=== PATIENT | male | born 1955 ===

== ENCOUNTER 2023-04-13 11:12 | Emergency (ER) | payer OTHER ==
--- OUTSIDE RECORDS SUMMARY | 2023-04-13 11:33 | XMS REPORT | Continuity of Care Document ---
:1955 Author Organization [facility] t Address [address] [place] [address] [address] [place] [address] Care Team Providers Name Role Phone GORDON MONTIEL Primary Care Physician Unavailable Rory Attending Clinician Unavailable Ayd Bailey Attending Clinician [phone] Ady Bailey Attending Clinician Unavailable KANU MARCELINO Attending Clinician Unavailable YADIEL BAIG Attending Clinician Unavailable Ravi Alvarez DO Attending Clinician WILL REEDER Attending Clinician Unavailable Doctor Unassigned, Angwin Attending Clinician Unavailable BOSSMAN ANGELES Attending Clinician Unavailable Dre López Attending Clinician Rory Admitting Clinician Unavailable KNOW, DOES_NOT Admitting Clinician Unavailable GLADYS CALLAHAN Admitting Clinician Unavailable BOSSMAN ANGELES Admitting Clinician Unavailable Payers Payer Name Policy Type Policy Number Effective Date Expiration Date Ping TOMPKINS (POS) [id number] 2010 00:00:00 Problems Condition Condition Condition Status Onset Resolution Last Treating Co mments Source Name Details Category Date Date Treatment Clinician Date Shoulder Shoulder Problem Active Azale a pain Pain -07 Orthope 00:00: dic 00 Sports Medicin e Sprain of Sprain of Problem Active Aza karishma shoulder Shoulder 4-07 Orthop e rotator Rotator 00:00: dic cuff Cuff 00 Sports Medicin e Cervical Cervical Problem Active Azale a radiculopa Radiculopa 3-17 Or thope thy thy 00:00: dic 00 Sports Medicin e Impingemen Impingemen Problem Active A zalea t syndrome t Syndrome 2-23 Or thope of right of Right 00:00: dic shoulder Shoulder 00 Sports region Region Medicin e Degenerati Degenerati Problem Active 2020-11 A zalea ve joint ve Joint 2-03 Orthop e disease of Disease of 00:00: di c shoulder Shoulder 00 Sports region Region Medicin e 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 t syndrome t Syndrome 2-03 Or thope of of 00:00: dic shoulder Shoulder 00 Sports region Region Medicin e Full Full Problem Active 2020-11 Tere thickness Thickness 2-03 Orth ope rotator Rotator 00:00: dic cuff tear Cuff Tear 00 Spor ts Medicin e ANKLE ANKLE Diagnosis Active 2019-02-03 Mem oria WOUND WOUND 4- 18:12:00 l Active 00:00: Evans 02/03/2019 00 [facility] No known No known Disease Unive rs active active ity of problems problems [facility] [place] History of Past Illness Condition Condition Condition Status Onset Resolution Last Treating Co mments Source Name Details Category Date Date Treatment Clinician Date Pain in Pain in Problem 2019-02-06 2019-02-06 Memoria left ankle left ankle 02-03 01:37:01 01:37:01 l 02/03/2019 05:00: Carlos cota 02/06/2019 00 [facility] Allergies, Adverse Reactions, Alerts Allergy Allergy Status Severity Reaction(s) Onset Inactive Treating Comm ents Source Name Type Date Date Clinician No Known DA Active U [facility] 7[facility]14 [place] Allergie 00:00: Orthope s 00 dic Hospita l No Known DA Active U 2020-11 [facility] Allergie 2-09 [place] s 00:00: Orthope 00 dic Hospita l NO KNOWN Drug Active Univers ALLERGIE Class ity of S [facility] Social History Social Habit Start Date Stop Date Quantity Comments Source History [facility] University o f Alcohol Std [place] [facility] Drinks Branch History [facility] University o f Alcohol Binge [place] [facility] Tobacco use and 2019-10-09 2019-10-09 Never used Universit y of exposure 00:00:00 00:00:00 [place] [facility] Alcohol intake 2019-10-09 2019-10-09 Lifetime University of 00:00:00 00:00:00 non-drinker [place] [facility] (finding) Branch History SDOH 2019-10-09 2019-10-09 1 University o f Alcohol Frequency 00:00:00 00:00:00 [facility] edical [place] Sex [birth year] Universit y of 00:00:00 00:00:00 [facility] Smoking Status Start Date Stop Date Source Social History [facility] Medications Ordered Filled Start Stop Current Ordering Indication Dosage Frequency Signature Comments Components Source Medication Medication Date Date Medication? Clinician (SIG) Name Name Diclofenac 2018-11 Yes [id number] Apply to Univers Sodium 2-06 area(s) 4 ity of (VOLTAREN) 00:00: (four) [place] 1 % gel 00 times Medical daily. Branch Diclofenac 2018-11 Yes [id number] Apply to Univers Sodium 2-06 area(s) 4 ity of (VOLTAREN) 00:00: (four) [place] 1 % gel 00 times Medical daily. Branch acetaminoph 2018-11 Yes [id number] 1{tbl} Take 1 Univers en-codeine 1-30 tablet by ity of (TYLENOL-CO 00:00: mouth [place] DEINE #3) 00 every 4 Medical 300-30 mg (four) Branch tablet hours as needed for Pain (scale 1-3). acetaminoph 2018-11 Yes [id number] 1{tbl} Take 1 Univers en-codeine 1-30 tablet by ity of (TYLENOL-CO 00:00: mouth [place] DEINE #3) 00 every 4 Medical 300-30 mg (four) Branch tablet hours as needed for Pain (scale 1-3). Cephalexin Yes 500 mg = 1 M emoria 500 MG Oral 4-02 cap, PO, l Capsule 22:27: QID, X 10 Yolette nn [Keflex] 00 day, # 40 cap, 0 Refill(s) METFORMIN Yes Take by Unive rs HCL 7-14 mouth. ity of (METFORMIN 16:08: [place] ORAL) 39 Medical Branch METFORMIN Yes Take by Unive rs HCL 7-14 mouth. ity of (METFORMIN 16:08: [place] ORAL) 39 Medical Branch methylPREDN Yes 84mg Take 21 Uni vers ISolone 7-14 tablets by ity of (MEDROL, 00:00: mouth [place] AUDELIA,) 4 mg 00 SEE-INSTRU Med ical tablets CTIONS. Branch follow package directions methylPREDN Yes 84mg Take 21 Uni vers ISolone 7-14 tablets by ity of (MEDROL, 00:00: mouth [place] AUDELIA,) 4 mg 00 SEE-INSTRU Med ical tablets CTIONS. Branch follow package directions INVOKANA Yes Univers 300 mg 7-05 ity of tablet 00:00: [place] 00 Medical Branch INVOKANA Yes Univers 300 mg 7-05 ity of tablet 00:00: [place] 00 Medical Branch promethazin promethazin No promethazi Tere e 25 mg e 25 mg ne 25 mg Ortho pe tablet Take tablet Take tablet dic 1 tablet 1 tablet Take 1 Sport s every 6-8 every 6-8 tablet Med icin hours as hours as every 6-8 e needed for needed for hours as nausea and nausea and needed for vomiting vomiting nausea and vomiting QuickVue QuickVue No QuickVue Aza karishma [facility]Home Orthop e COVID-19 COVID-19 COVID-19 dic Test kit Test kit Test kit Spo rts Medicin e rosuvastati rosuvastati No rosuvastat Tere n 5 mg n 5 mg in 5 mg Orthope tablet TAKE tablet TAKE tablet dic 1 TABLET BY 1 TABLET BY TAKE 1 Sports MOUTH EVERY MOUTH EVERY TABLET BY Medicin DAY AT DAY AT MOUTH e NIGHT NIGHT EVERY DAY AT NIGHT tizanidine tizanidine No tizanidine Tere 2 mg tablet 2 mg tablet 2 mg O rthope TAKE 1 TAKE 1 tablet dic TABLET BY TABLET BY TAKE 1 Spo rts MOUTH EVERY MOUTH EVERY TABLET BY Medicin DAY AT DAY AT MOUTH e BEDTIME FOR BEDTIME FOR EVERY DAY 28 DAYS 28 DAYS AT BEDTIME FOR 28 DAYS tizanidine tizanidine No tizanidine Tere 4 mg tablet 4 mg tablet 4 mg O rthope Take 1 Take 1 tablet dic tablet(s) tablet(s) Take 1 Spo rts EVERY 8 EVERY 8 tablet(s) Medi vera HOURS by HOURS by EVERY 8 e oral route oral route HOURS by as needed as needed oral route for muscle for muscle as needed spasms spasms for muscle spasms tramadol tramadol No tramadol Aza karishma 37.5 37.5 37.5 Orthope mg-acetamin mg-acetamin mg-acetami dic ophen 325 ophen 325 nophen 325 Sports mg tablet mg tablet mg tablet Medicin TAKE 1 TAKE 1 TAKE 1 e TABLET BY TABLET BY TABLET BY MOUTH EVERY MOUTH EVERY MOUTH 4 TO 6 4 TO 6 EVERY 4 TO HOURS HOURS 6 HOURS NEEDED FOR NEEDED FOR NEEDED FOR PAIN PAIN PAIN tramadol 50 tramadol 50 No tramadol Tere mg tablet mg tablet 50 mg Orth ope TAKE 1 TAKE 1 tablet dic TABLET BY TABLET BY TAKE 1 Spo rts MOUTH EVERY MOUTH EVERY TABLET BY Medicin 6 TO 8 6 TO 8 MOUTH e HOURS HOURS EVERY 6 TO NEEDED NEEDED 8 HOURS NEEDED Accu-Chek Accu-Chek No Accu-Chek Tere Nettie Plus Netite Plus Nettie Plus Orthope test strips test strips test d ic USE USE strips USE Sport s INSTRUCTED INSTRUCTED Med icin INSTRUCTED e acetaminoph acetaminoph No acetaminop Tere en 300 en 300 hen 300 Orthope mg-codeine mg-codeine mg-codeine dic 30 mg 30 mg 30 mg Sports tablet TAKE tablet TAKE tablet Medicin 1 TABLET BY 1 TABLET BY TAKE 1 e MOUTH EVERY MOUTH EVERY TABLET BY 6 HOURS 6 HOURS MOUTH NEEDED FOR NEEDED FOR EVERY 6 PAIN FOR 7 PAIN FOR 7 HOURS DAYS DAYS NEEDED FOR PAIN FOR 7 DAYS amoxicillin amoxicillin No amoxicilli Tere 500 mg 500 mg n 500 mg Orthope tablet TAKE tablet TAKE tablet dic 1 TABLET BY 1 TABLET BY TAKE 1 Sports MOUTH THREE MOUTH THREE TABLET BY Medicin TIMES A DAY TIMES A DAY MOUTH e THREE TIMES A DAY amoxicillin amoxicillin No amoxicilli Tere 875 mg 875 mg n 875 mg Orthope tablet TAKE tablet TAKE tablet dic 1 TABLET BY 1 TABLET BY TAKE 1 Sports MOUTH EVERY MOUTH EVERY TABLET BY Medicin 12 HOURS 12 HOURS MOUTH e FOR 10 DAYS FOR 10 DAYS EVERY 12 HOURS FOR 10 DAYS gabapentin gabapentin No gabapentin Tere 300 mg 300 mg 300 mg Orthope capsule capsule capsule dic TAKE 1 TAKE 1 TAKE 1 Sports CAPSULE CAPSULE CAPSULE Medici n TWICE A DAY TWICE A DAY TWICE A e BY MOUTH BY MOUTH DAY BY FOR 28 FOR 28 MOUTH FOR DAYS. DAYS. 28 DAYS. hydrocodone hydrocodone No hydrocodon Tere 5 5 e 5 Orthope mg-acetamin mg-acetamin mg-acetami dic ophen 325 ophen 325 nophen 325 Sports mg tablet mg tablet mg tablet Medicin TAKE 1 TAKE 1 TAKE 1 e TABLET BY TABLET BY TABLET BY MOUTH EVERY MOUTH EVERY MOUTH DAY DAY EVERY DAY ID NOW ID NOW No ID NOW Tere COVID-19 COVID-19 COVID-19 Ort hope Test Kit Test Kit Test Kit dic TEST TEST TEST Sports DIRECTED DIRECTED DIRECTED Med icin TODAY TODAY TODAY e [id number] ketorolac ketorolac No ketorolac Tere 10 mg 10 mg 10 mg Orthope tablet Take tablet Take tablet dic 1 tablet 1 tablet Take 1 Sport s every 6 every 6 tablet Medicin hours by hours by every 6 e oral route oral route hours by for 5 days. for 5 days. oral route for 5 days. losartan losartan No losartan Aza karishma 100 100 100 Orthope mg-hydrochl mg-hydrochl mg-hydroch dic orothiazide orothiazide lorothiazi Sports 25 mg 25 mg de 25 mg Medicin tablet TAKE tablet TAKE tablet e 1 TABLET BY 1 TABLET BY TAKE 1 MOUTH EVERY MOUTH EVERY TABLET BY DAY DAY MOUTH EVERY DAY meloxicam meloxicam No meloxicam Tere 15 mg 15 mg 15 mg Orthope tablet TAKE tablet TAKE tablet dic 1 TABLET BY 1 TABLET BY TAKE 1 Sports MOUTH EVERY MOUTH EVERY TABLET BY Medicin DAY DAY MOUTH e EVERY DAY meloxicam meloxicam No meloxicam Tere 7.5 mg 7.5 mg 7.5 mg Orthope tablet TAKE tablet TAKE tablet dic 1 TABLET BY 1 TABLET BY TAKE 1 Sports MOUTH EVERY MOUTH EVERY TABLET BY Medicin DAY DAY MOUTH e EVERY DAY metformin metformin No metformin Tere 1,000 mg 1,000 mg 1,000 mg Ort hope tablet TAKE tablet TAKE tablet dic 1 TABLET BY 1 TABLET BY TAKE 1 Sports MOUTH EVERY MOUTH EVERY TABLET BY Medicin 12 HOURS 12 HOURS MOUTH e EVERY 12 HOURS Ozempic Ozempic No Ozempic Tere 0.25 mg or 0.25 mg or 0.25 mg or Orthope 0.5 mg (2 0.5 mg (2 0.5 mg (2 dic mg/1.5 mL) mg/1.5 mL) mg/1.5 mL) Sports subcutaneou subcutaneou subcutaneo Medicin s pen s pen us pen e injector injector injector INJECT 0.5 INJECT 0.5 INJECT 0.5 MG UNDER MG UNDER MG UNDER THE SKIN THE SKIN THE SKIN EVERY 7 EVERY 7 EVERY 7 DAYS. DAYS. DAYS. Ozempic 1 Ozempic 1 No Ozempic 1 Tere mg/dose (4 mg/dose (4 mg/dose (4 Orthope mg/3 mL) mg/3 mL) mg/3 mL) dic subcutaneou subcutaneou subcutaneo Sports s pen s pen us pen Medicin injector injector injector e INJECT 0.75 INJECT 0.75 INJECT ML (1 MG ML (1 MG 0.75 ML (1 TOTAL) TOTAL) MG TOTAL) UNDER THE UNDER THE UNDER THE SKIN EVERY SKIN EVERY SKIN EVERY 7 DAYS. 7 DAYS. 7 DAYS. prednisone prednisone No prednisone Tere 10 mg 10 mg 10 mg Orthope tablet TAKE tablet TAKE tablet dic 1 TABLET BY 1 TABLET BY TAKE 1 Sports MOUTH THREE MOUTH THREE TABLET BY Medicin TIMES A DAY TIMES A DAY MOUTH e THREE TIMES A DAY promethazin promethazin No promethazi Tere e 25 mg e 25 mg ne 25 mg Ortho pe tablet Take tablet Take tablet dic 1 tablet 1 tablet Take 1 Sport s every 6-8 every 6-8 tablet Med icin hours as hours as every 6-8 e needed for needed for hours as nausea and nausea and needed for vomiting vomiting nausea and vomiting rosuvastati rosuvastati No rosuvastat Tere n 5 mg n 5 mg in 5 mg Orthope tablet TAKE tablet TAKE tablet dic 1 TABLET BY 1 TABLET BY TAKE 1 Sports MOUTH EVERY MOUTH EVERY TABLET BY Medicin DAY AT DAY AT MOUTH e NIGHT NIGHT EVERY DAY AT NIGHT tizanidine tizanidine No tizanidine Tere 2 mg tablet 2 mg tablet 2 mg O rthope TAKE 1 TAKE 1 tablet dic TABLET TABLET TAKE 1 Sports EVERY DAY EVERY DAY TABLET Med icin BY MOUTH AT BY MOUTH AT EVERY DAY e BEDTIME FOR BEDTIME FOR BY MOUTH 28 DAYS. 28 DAYS. AT BEDTIME FOR 28 DAYS. tizanidine tizanidine No tizanidine Tere 4 mg tablet 4 mg tablet 4 mg O rthope Take 1 Take 1 tablet dic tablet(s) tablet(s) Take 1 Spo rts EVERY 8 EVERY 8 tablet(s) Medi vera HOURS by HOURS by EVERY 8 e oral route oral route HOURS by as needed as needed oral route for muscle for muscle as needed spasms spasms for muscle spasms tramadol tramadol No tramadol Aza karishma 37.5 37.5 37.5 Orthope mg-acetamin mg-acetamin mg-acetami dic ophen 325 ophen 325 nophen 325 Sports mg tablet mg tablet mg tablet Medicin TAKE 1 TAKE 1 TAKE 1 e TABLET BY TABLET BY TABLET BY MOUTH EVERY MOUTH EVERY MOUTH 4 TO 6 4 TO 6 EVERY 4 TO HOURS HOURS 6 HOURS NEEDED FOR NEEDED FOR NEEDED FOR PAIN PAIN PAIN tramadol 50 tramadol 50 No tramadol Tere mg tablet mg tablet 50 mg Orth ope TAKE 1 TAKE 1 tablet dic TABLET BY TABLET BY TAKE 1 Spo rts MOUTH EVERY MOUTH EVERY TABLET BY Medicin 4 TO 6 4 TO 6 MOUTH e HOURS HOURS EVERY 4 TO NEEDED FOR NEEDED FOR 6 HOURS PAIN PAIN NEEDED FOR PAIN Accu-Chek Accu-Chek No Accu-Chek Tere Nettie Plus Nettie Plus Nettie Plus Orthope test strips test strips test d ic USE USE strips USE Sport s INSTRUCTED INSTRUCTED Med icin INSTRUCTED e acetaminoph acetaminoph No acetaminop Tere en 300 en 300 hen 300 Orthope mg-codeine mg-codeine mg-codeine dic 30 mg 30 mg 30 mg Sports tablet TAKE tablet TAKE tablet Medicin 1 TABLET BY 1 TABLET BY TAKE 1 e MOUTH EVERY MOUTH EVERY TABLET BY 6 HOURS 6 HOURS MOUTH NEEDED FOR NEEDED FOR EVERY 6 PAIN FOR 7 PAIN FOR 7 HOURS DAYS DAYS NEEDED FOR PAIN FOR 7 DAYS amlodipine amlodipine No amlodipine Tere 5 mg tablet 5 mg tablet 5 mg O rthope TAKE 1 TAKE 1 tablet dic TABLET BY TABLET BY TAKE 1 Spo rts MOUTH 1 MOUTH 1 TABLET BY Medi vera TIME EACH TIME EACH MOUTH 1 e DAY. DAY. TIME EACH DAY. amoxicillin amoxicillin No amoxicilli Tere 500 mg 500 mg n 500 mg Orthope tablet TAKE tablet TAKE tablet dic 1 TABLET BY 1 TABLET BY TAKE 1 Sports MOUTH THREE MOUTH THREE TABLET BY Medicin TIMES A DAY TIMES A DAY MOUTH e THREE TIMES A DAY amoxicillin amoxicillin No amoxicilli Tere 875 mg 875 mg n 875 mg Orthope tablet TAKE tablet TAKE tablet dic 1 TABLET BY 1 TABLET BY TAKE 1 Sports MOUTH EVERY MOUTH EVERY TABLET BY Medicin 12 HOURS 12 HOURS MOUTH e FOR 10 DAYS FOR 10 DAYS EVERY 12 HOURS FOR 10 DAYS benzonatate benzonatate No benzonatat Tere 100 mg 100 mg e 100 mg Orthope capsule capsule capsule dic Sports Medicin e fluticasone fluticasone No fluticason Tere propionate propionate e Ort hope 50 50 propionate dic mcg/actuati mcg/actuati 50 S ports on nasal on nasal mcg/actuat M edicin spray,suspe spray,suspe ion nasal e nsion nsion spray,susp ension gabapentin gabapentin No gabapentin Tere 300 mg 300 mg 300 mg Orthope capsule capsule capsule dic TAKE 1 TAKE 1 TAKE 1 Sports CAPSULE CAPSULE CAPSULE Medici n TWICE A DAY TWICE A DAY TWICE A e BY MOUTH BY MOUTH DAY BY FOR 28 FOR 28 MOUTH FOR DAYS. DAYS. 28 DAYS. hydrocodone hydrocodone No hydrocodon Tere 5 5 e 5 Orthope mg-acetamin mg-acetamin mg-acetami dic ophen 325 ophen 325 nophen 325 Sports mg tablet mg tablet mg tablet Medicin TAKE 1 TAKE 1 TAKE 1 e TABLET BY TABLET BY TABLET BY MOUTH EVERY MOUTH EVERY MOUTH DAY DAY EVERY DAY ID NOW ID NOW No ID NOW Tere COVID-19 COVID-19 COVID-19 Ort mount cory Test Kit Test Kit Test Kit dic TEST TEST TEST Sports DIRECTED DIRECTED DIRECTED Med icin TODAY TODAY TODAY e [id number] ketorolac ketorolac No ketorolac Tere 10 mg 10 mg 10 mg Orthope tablet Take tablet Take tablet dic 1 tablet 1 tablet Take 1 Sport s every 6 every 6 tablet Medicin hours by hours by every 6 e oral route oral route hours by for 5 days. for 5 days. oral route for 5 days. losartan losartan No losartan Aza karishma 100 100 100 Orthope mg-hydrochl mg-hydrochl mg-hydroch dic orothiazide orothiazide lorothiazi Sports 25 mg 25 mg de 25 mg Medicin tablet TAKE tablet TAKE tablet e 1 TABLET BY 1 TABLET BY TAKE 1 MOUTH 1 MOUTH 1 TABLET BY TIME EACH TIME EACH MOUTH 1 DAY. DAY. TIME EACH DAY. meloxicam meloxicam No meloxicam Tere 15 mg 15 mg 15 mg Orthope tablet TAKE tablet TAKE tablet dic 1 TABLET BY 1 TABLET BY TAKE 1 Sports MOUTH EVERY MOUTH EVERY TABLET BY Medicin DAY DAY MOUTH e EVERY DAY meloxicam meloxicam No meloxicam Tere 7.5 mg 7.5 mg 7.5 mg Orthope tablet TAKE tablet TAKE tablet dic 1 TABLET BY 1 TABLET BY TAKE 1 Sports MOUTH EVERY MOUTH EVERY TABLET BY Medicin DAY DAY MOUTH e EVERY DAY metformin metformin No metformin Tere 1,000 mg 1,000 mg 1,000 mg Ort hope tablet TAKE tablet TAKE tablet dic 1 TABLET BY 1 TABLET BY TAKE 1 Sports MOUTH EVERY MOUTH EVERY TABLET BY Medicin 12 HOURS 12 HOURS MOUTH e EVERY 12 HOURS Ozempic Ozempic No Ozempic Tere 0.25 mg or 0.25 mg or 0.25 mg or Orthope 0.5 mg (2 0.5 mg (2 0.5 mg (2 dic mg/1.5 mL) mg/1.5 mL) mg/1.5 mL) Sports subcutaneou subcutaneou subcutaneo Medicin s pen s pen us pen e injector injector injector INJECT 0.5 INJECT 0.5 INJECT 0.5 MG UNDER MG UNDER MG UNDER THE SKIN THE SKIN THE SKIN EVERY 7 EVERY 7 EVERY 7 DAYS. DAYS. DAYS. Ozempic 1 Ozempic 1 No Ozempic 1 Tere mg/dose (4 mg/dose (4 mg/dose (4 Orthope mg/3 mL) mg/3 mL) mg/3 mL) dic subcutaneou subcutaneou subcutaneo Sports s pen s pen us pen Medicin injector injector injector e INJECT 0.75 INJECT 0.75 INJECT MG UNDER MG UNDER 0.75 MG THE SKIN THE SKIN UNDER THE PER WEEK. PER WEEK. SKIN PER WEEK. prednisone prednisone No prednisone Tere 10 mg 10 mg 10 mg Orthope tablet TAKE tablet TAKE tablet dic 1 TABLET BY 1 TABLET BY TAKE 1 Sports MOUTH THREE MOUTH THREE TABLET BY Medicin TIMES A DAY TIMES A DAY MOUTH e THREE TIMES A DAY promethazin promethazin No promethazi Tere e 25 mg e 25 mg ne 25 mg Ortho pe tablet Take tablet Take tablet dic 1 tablet 1 tablet Take 1 Sport s every 6-8 every 6-8 tablet Med icin hours as hours as every 6-8 e needed for needed for hours as nausea and nausea and needed for vomiting vomiting nausea and vomiting QuickVue QuickVue No QuickVue Aza karishma [facility]-Home [facility]-Home At-Home Orthop e COVID-19 COVID-19 COVID-19 dic Test kit Test kit Test kit Spo rts Medicin e rosuvastati rosuvastati No rosuvastat Tere n 5 mg n 5 mg in 5 mg Orthope tablet TAKE tablet TAKE tablet dic 1 TABLET BY 1 TABLET BY TAKE 1 Sports MOUTH EVERY MOUTH EVERY TABLET BY Medicin DAY AT DAY AT MOUTH e NIGHT NIGHT EVERY DAY AT NIGHT tizanidine tizanidine No tizanidine Tere 2 mg tablet 2 mg tablet 2 mg O rthope TAKE 1 TAKE 1 tablet dic TABLET TABLET TAKE 1 Sports EVERY DAY EVERY DAY TABLET Med icin BY MOUTH AT BY MOUTH AT EVERY DAY e BEDTIME FOR BEDTIME FOR BY MOUTH 28 DAYS. 28 DAYS. AT BEDTIME FOR 28 DAYS. tizanidine tizanidine No tizanidine Tere 4 mg tablet 4 mg tablet 4 mg O rthope Take 1 Take 1 tablet dic tablet(s) tablet(s) Take 1 Spo rts EVERY 8 EVERY 8 tablet(s) Medi vera HOURS by HOURS by EVERY 8 e oral route oral route HOURS by as needed as needed oral route for muscle for muscle as needed spasms spasms for muscle spasms tramadol tramadol No tramadol Aza karishma 37.5 37.5 37.5 Orthope mg-acetamin mg-acetamin mg-acetami dic ophen 325 ophen 325 nophen 325 Sports mg tablet mg tablet mg tablet Medicin TAKE 1 TAKE 1 TAKE 1 e TABLET BY TABLET BY TABLET BY MOUTH EVERY MOUTH EVERY MOUTH 4 TO 6 4 TO 6 EVERY 4 TO HOURS HOURS 6 HOURS NEEDED FOR NEEDED FOR NEEDED FOR PAIN PAIN PAIN tramadol 50 tramadol 50 No tramadol Tere mg tablet mg tablet 50 mg Orth ope TAKE 1 TAKE 1 tablet dic TABLET BY TABLET BY TAKE 1 Spo rts MOUTH EVERY MOUTH EVERY TABLET BY Medicin 4 TO 6 4 TO 6 MOUTH e HOURS HOURS EVERY 4 TO NEEDED FOR NEEDED FOR 6 HOURS PAIN PAIN NEEDED FOR PAIN Accu-Chek Accu-Chek No Accu-Chek Tere Nettie Plus Nettie Plus Nettie Plus Orthope test strips test strips test d ic USE USE strips USE Sport s INSTRUCTED INSTRUCTED Med icin INSTRUCTED e acetaminoph acetaminoph No acetaminop Tere en 300 en 300 hen 300 Orthope mg-codeine mg-codeine mg-codeine dic 30 mg 30 mg 30 mg Sports tablet TAKE tablet TAKE tablet Medicin 1 TABLET BY 1 TABLET BY TAKE 1 e MOUTH EVERY MOUTH EVERY TABLET BY 6 HOURS 6 HOURS MOUTH NEEDED FOR NEEDED FOR EVERY 6 PAIN FOR 7 PAIN FOR 7 HOURS DAYS DAYS NEEDED FOR PAIN FOR 7 DAYS amlodipine amlodipine No amlodipine Tere 5 mg tablet 5 mg tablet 5 mg O rthope TAKE 1 TAKE 1 tablet dic TABLET BY TABLET BY TAKE 1 Spo rts MOUTH 1 MOUTH 1 TABLET BY Medi vera TIME EACH TIME EACH MOUTH 1 e DAY. DAY. TIME EACH DAY. amoxicillin amoxicillin No amoxicilli Tere 500 mg 500 mg n 500 mg [facility]ope tablet TAKE tablet TAKE tablet dic 1 TABLET BY 1 TABLET BY TAKE 1 Sports MOUTH THREE MOUTH THREE TABLET BY Medicin TIMES A DAY TIMES A DAY MOUTH e THREE TIMES A DAY amoxicillin amoxicillin No amoxicilli Tere 875 mg 875 mg n 875 mg [facility] tablet TAKE tablet TAKE tablet dic 1 TABLET BY 1 TABLET BY TAKE 1 Sports MOUTH EVERY MOUTH EVERY TABLET BY Medicin 12 HOURS 12 HOURS MOUTH e FOR 10 DAYS FOR 10 DAYS EVERY 12 HOURS FOR 10 DAYS benzonatate benzonatate No benzonatat Tere 100 mg 100 mg e 100 mg Orthope capsule capsule capsule dic Sports Medicin e Celebrex Celebrex No 1capsul Q1D Celebrex Tere 200 mg 200 mg e(s) 200 mg Orthope capsule capsule capsule dic Take 1 Take 1 Take 1 Sports capsule capsule capsule Medici n every day every day every day e by oral by oral by oral route. route. route. fluticasone fluticasone No fluticason Tere propionate propionate e Ort hope 50 50 propionate dic mcg/actuati mcg/actuati 50 S ports on nasal on nasal mcg/actuat M edicin spray,suspe spray,suspe ion nasal e nsion nsion spray,susp ension gabapentin gabapentin No gabapentin Tere 300 mg 300 mg 300 mg [facility] capsule capsule capsule dic TAKE 1 TAKE 1 TAKE 1 Sports CAPSULE BY CAPSULE BY CAPSULE BY Medicin MOUTH TWICE MOUTH TWICE MOUTH e A DAY FOR A DAY FOR TWICE A 28 DAYS 28 DAYS DAY FOR 28 DAYS hydrocodone hydrocodone No hydrocodon Tere 10 10 e 10 Orthope mg-acetamin mg-acetamin mg-acetami dic ophen 325 ophen 325 nophen 325 Sports mg tablet mg tablet mg tablet Medicin PLEASE SEE PLEASE SEE PLEASE SEE e ATTACHED ATTACHED ATTACHED FOR FOR FOR DETAILED DETAILED DETAILED DIRECTIONS DIRECTIONS DIRECTIONS hydrocodone hydrocodone No hydrocodon Tere 5 5 e 5 Orthope mg-acetamin mg-acetamin mg-acetami dic ophen 325 ophen 325 nophen 325 Sports mg tablet mg tablet mg tablet Medicin TAKE 1 TAKE 1 TAKE 1 e TABLET BY TABLET BY TABLET BY MOUTH EVERY MOUTH EVERY MOUTH DAY DAY EVERY DAY ID NOW ID NOW No ID NOW Tere COVID-19 COVID-19 COVID-19 Ort hope Test Kit Test Kit Test Kit dic TEST TEST TEST Sports DIRECTED DIRECTED DIRECTED Med icin TODAY TODAY TODAY e [id number] ketorolac ketorolac No ketorolac Tere 10 mg 10 mg 10 mg [facility] tablet Take tablet Take tablet dic 1 tablet 1 tablet Take 1 Sport s every 6 every 6 tablet Medicin hours by hours by every 6 e oral route oral route hours by for 5 days. for 5 days. oral route for 5 days. losartan losartan No losartan Aza karishma 100 100 100 [facility] mg-hydrochl mg-hydrochl mg-hydroch dic orothiazide orothiazide lorothiazi Sports 25 mg 25 mg de 25 mg Medicin tablet TAKE tablet TAKE tablet e 1 TABLET BY 1 TABLET BY TAKE 1 MOUTH 1 MOUTH 1 TABLET BY TIME EACH TIME EACH MOUTH 1 DAY. DAY. TIME EACH DAY. meloxicam meloxicam No meloxicam Tere 15 mg 15 mg 15 mg [facility] tablet TAKE tablet TAKE tablet dic 1 TABLET BY 1 TABLET BY TAKE 1 Sports MOUTH EVERY MOUTH EVERY TABLET BY Medicin DAY DAY MOUTH e EVERY DAY meloxicam meloxicam No meloxicam Tere 7.5 mg 7.5 mg 7.5 mg [facility] tablet TAKE tablet TAKE tablet dic 1 TABLET BY 1 TABLET BY TAKE 1 Sports MOUTH EVERY MOUTH EVERY TABLET BY Medicin DAY DAY MOUTH e EVERY DAY metformin metformin No metformin Tere 1,000 mg 1,000 mg 1,000 mg Ort hope tablet TAKE tablet TAKE tablet dic 1 TABLET BY 1 TABLET BY TAKE 1 Sports MOUTH EVERY MOUTH EVERY TABLET BY Medicin 12 HOURS 12 HOURS MOUTH e EVERY 12 HOURS Ozempic Ozempic No Ozempic Tere 0.25 mg or 0.25 mg or 0.25 mg or Orthope 0.5 mg (2 0.5 mg (2 0.5 mg (2 dic mg/1.5 mL) mg/1.5 mL) mg/1.5 mL) Sports subcutaneou subcutaneou subcutaneo Medicin s pen s pen us pen e injector injector injector INJECT 0.5 INJECT 0.5 INJECT 0.5 MG UNDER MG UNDER MG UNDER THE SKIN THE SKIN THE SKIN EVERY 7 EVERY 7 EVERY 7 DAYS. DAYS. DAYS. Ozempic 1 Ozempic 1 No Ozempic 1 Tere mg/dose (4 mg/dose (4 mg/dose (4 Orthope mg/3 mL) mg/3 mL) mg/3 mL) dic subcutaneou subcutaneou subcutaneo Sports s pen s pen us pen Medicin injector injector injector e INJECT 0.75 INJECT 0.75 INJECT MG UNDER MG UNDER 0.75 MG THE SKIN THE SKIN UNDER THE PER WEEK. PER WEEK. SKIN PER WEEK. prednisone prednisone No prednisone Tere 10 mg 10 mg 10 mg Orthope tablet TAKE tablet TAKE tablet dic 1 TABLET BY 1 TABLET BY TAKE 1 Sports MOUTH THREE MOUTH THREE TABLET BY Medicin TIMES A DAY TIMES A DAY MOUTH e THREE TIMES A DAY promethazin promethazin No promethazi Tere e 25 mg e 25 mg ne 25 mg Ortho pe tablet Take tablet Take tablet dic 1 tablet 1 tablet Take 1 Sport s every 6-8 every 6-8 tablet Med icin hours as hours as every 6-8 e needed for needed for hours as nausea and nausea and needed for vomiting vomiting nausea and vomiting QuickVue QuickVue No QuickVue Aza karishma At-Home At-Home At-Home Orthop e COVID-19 COVID-19 COVID-19 dic Test kit Test kit Test kit Spo rts Medicin e rosuvastati rosuvastati No rosuvastat Tere n 5 mg n 5 mg in 5 mg Orthope tablet TAKE tablet TAKE tablet dic 1 TABLET BY 1 TABLET BY TAKE 1 Sports MOUTH EVERY MOUTH EVERY TABLET BY Medicin DAY AT DAY AT MOUTH e NIGHT NIGHT EVERY DAY AT NIGHT tizanidine tizanidine No tizanidine Tere 2 mg tablet 2 mg tablet 2 mg O rthope TAKE 1 TAKE 1 tablet dic TABLET BY TABLET BY TAKE 1 Spo rts MOUTH EVERY MOUTH EVERY TABLET BY Medicin DAY AT DAY AT MOUTH e BEDTIME FOR BEDTIME FOR EVERY DAY 28 DAYS 28 DAYS AT BEDTIME FOR 28 DAYS tizanidine tizanidine No tizanidine Tere 4 mg tablet 4 mg tablet 4 mg O rthope Take 1 Take 1 tablet dic tablet(s) tablet(s) Take 1 Spo rts EVERY 8 EVERY 8 tablet(s) Medi vera HOURS by HOURS by EVERY 8 e oral route oral route HOURS by as needed as needed oral route for muscle for muscle as needed spasms spasms for muscle spasms tramadol tramadol No tramadol Aza karishma 37.5 37.5 37.5 Orthope mg-acetamin mg-acetamin mg-acetami dic ophen 325 ophen 325 nophen 325 Sports mg tablet mg tablet mg tablet Medicin TAKE 1 TAKE 1 TAKE 1 e TABLET BY TABLET BY TABLET BY MOUTH EVERY MOUTH EVERY MOUTH 4 TO 6 4 TO 6 EVERY 4 TO HOURS HOURS 6 HOURS NEEDED FOR NEEDED FOR NEEDED FOR PAIN PAIN PAIN tramadol 50 tramadol 50 No 1 Q7H tramadol Tere mg tablet mg tablet 50 mg Orth ope Take 1 Take 1 tablet dic tablet tablet Take 1 Sports every 6-8 every 6-8 tablet Med icin hours by hours by every 6-8 e oral route oral route hours by as needed. as needed. oral route as needed. Accu-Chek Accu-Chek No Accu-Chek Tere Nettie Plus Nettie Plus Nettie Plus Orthope test strips test strips test d ic USE USE strips USE Sport s INSTRUCTED INSTRUCTED Med icin INSTRUCTED e acetaminoph acetaminoph No acetaminop Tere en 300 en 300 hen 300 Orthope mg-codeine mg-codeine mg-codeine dic 30 mg 30 mg 30 mg Sports tablet TAKE tablet TAKE tablet Medicin 1 TABLET BY 1 TABLET BY TAKE 1 e MOUTH EVERY MOUTH EVERY TABLET BY 6 HOURS 6 HOURS MOUTH NEEDED FOR NEEDED FOR EVERY 6 PAIN FOR 7 PAIN FOR 7 HOURS DAYS DAYS NEEDED FOR PAIN FOR 7 DAYS amlodipine amlodipine No amlodipine Tere 5 mg tablet 5 mg tablet 5 mg O rthope TAKE 1 TAKE 1 tablet dic TABLET BY TABLET BY TAKE 1 Spo rts MOUTH 1 MOUTH 1 TABLET BY Medi vera TIME EACH TIME EACH MOUTH 1 e DAY. DAY. TIME EACH DAY. amoxicillin amoxicillin No amoxicilli Tere 500 mg 500 mg n 500 mg Orthope tablet TAKE tablet TAKE tablet dic 1 TABLET BY 1 TABLET BY TAKE 1 Sports MOUTH THREE MOUTH THREE TABLET BY Medicin TIMES A DAY TIMES A DAY MOUTH e THREE TIMES A DAY amoxicillin amoxicillin No amoxicilli Tere 875 mg 875 mg n 875 mg Orthope tablet TAKE tablet TAKE tablet dic 1 TABLET BY 1 TABLET BY TAKE 1 Sports MOUTH EVERY MOUTH EVERY TABLET BY Medicin 12 HOURS 12 HOURS MOUTH e FOR 10 DAYS FOR 10 DAYS EVERY 12 HOURS FOR 10 DAYS benzonatate benzonatate No benzonatat Tere 100 mg 100 mg e 100 mg Orthope capsule capsule capsule dic Sports Medicin e celecoxib celecoxib No celecoxib Tere 200 mg 200 mg 200 mg Orthope capsule capsule capsule dic TAKE 1 TAKE 1 TAKE 1 Sports CAPSULE BY CAPSULE BY CAPSULE BY Medicin MOUTH EVERY MOUTH EVERY MOUTH e DAY DAY EVERY DAY fluticasone fluticasone No fluticason Tere propionate propionate e Ort hope 50 50 propionate dic mcg/actuati mcg/actuati 50 S ports on nasal on nasal mcg/actuat M edicin spray,suspe spray,suspe ion nasal e nsion nsion spray,susp ension gabapentin gabapentin No gabapentin Tere 300 mg 300 mg 300 mg Orthope capsule capsule capsule dic TAKE 1 TAKE 1 TAKE 1 Sports CAPSULE BY CAPSULE BY CAPSULE BY Medicin MOUTH TWICE MOUTH TWICE MOUTH e A DAY FOR A DAY FOR TWICE A 28 DAYS 28 DAYS DAY FOR 28 DAYS hydrocodone hydrocodone No hydrocodon Tere 10 10 e 10 Orthope mg-acetamin mg-acetamin mg-acetami dic ophen 325 ophen 325 nophen 325 Sports mg tablet mg tablet mg tablet Medicin TAKE 1 TAKE 1 TAKE 1 e TABLET TABLET TABLET EVERY DAY EVERY DAY EVERY DAY BY MOUTH BY MOUTH BY MOUTH NEEDED OR NEEDED OR NEEDED MAY BREAK MAY BREAK OR MAY IN HALF AND IN HALF AND BREAK IN TAKE 1/2 TAKE 1/2 HALF AND TAB TWICE A TAB TWICE A TAKE 1/2 DAY DAY TAB TWICE A DAY hydrocodone hydrocodone No hydrocodon Tere 5 5 e 5 Orthope mg-acetamin mg-acetamin mg-acetami dic ophen 325 ophen 325 nophen 325 Sports mg tablet mg tablet mg tablet Medicin TAKE 1 TAKE 1 TAKE 1 e TABLET BY TABLET BY TABLET BY MOUTH EVERY MOUTH EVERY MOUTH DAY DAY EVERY DAY ID NOW ID NOW No ID NOW Tere COVID-19 COVID-19 COVID-19 Ort hope Test Kit Test Kit Test Kit dic TEST TEST TEST Sports DIRECTED DIRECTED DIRECTED Med icin TODAY TODAY TODAY e [id number] ketorolac ketorolac No ketorolac Tere 10 mg 10 mg 10 mg Orthope tablet Take tablet Take tablet dic 1 tablet 1 tablet Take 1 Sport s every 6 every 6 tablet Medicin hours by hours by every 6 e oral route oral route hours by for 5 days. for 5 days. oral route for 5 days. losartan losartan No losartan Aza karishma 100 100 100 Orthope mg-hydrochl mg-hydrochl mg-hydroch dic orothiazide orothiazide lorothiazi Sports 25 mg 25 mg de 25 mg Medicin tablet TAKE tablet TAKE tablet e 1 TABLET BY 1 TABLET BY TAKE 1 MOUTH 1 MOUTH 1 TABLET BY TIME EACH TIME EACH MOUTH 1 DAY. DAY. TIME EACH DAY. meloxicam meloxicam No meloxicam Tere 15 mg 15 mg 15 mg Orthope tablet TAKE tablet TAKE tablet dic 1 TABLET BY 1 TABLET BY TAKE 1 Sports MOUTH EVERY MOUTH EVERY TABLET BY Medicin DAY DAY MOUTH e EVERY DAY meloxicam meloxicam No meloxicam Tere 7.5 mg 7.5 mg 7.5 mg Orthope tablet TAKE tablet TAKE tablet dic 1 TABLET BY 1 TABLET BY TAKE 1 Sports MOUTH EVERY MOUTH EVERY TABLET BY Medicin DAY DAY MOUTH e EVERY DAY metformin metformin No metformin Tere 1,000 mg 1,000 mg 1,000 mg Ort hope tablet TAKE tablet TAKE tablet dic 1 TABLET BY 1 TABLET BY TAKE 1 Sports MOUTH EVERY MOUTH EVERY TABLET BY Medicin 12 HOURS 12 HOURS MOUTH e EVERY 12 HOURS Ozempic Ozempic No Ozempic Tere 0.25 mg or 0.25 mg or 0.25 mg or Orthope 0.5 mg (2 0.5 mg (2 0.5 mg (2 dic mg/1.5 mL) mg/1.5 mL) mg/1.5 mL) Sports subcutaneou subcutaneou subcutaneo Medicin s pen s pen us pen e injector injector injector INJECT 0.5 INJECT 0.5 INJECT 0.5 MG UNDER MG UNDER MG UNDER THE SKIN THE SKIN THE SKIN EVERY 7 EVERY 7 EVERY 7 DAYS. DAYS. DAYS. Ozempic 1 Ozempic 1 No Ozempic 1 Tere mg/dose (4 mg/dose (4 mg/dose (4 Orthope mg/3 mL) mg/3 mL) mg/3 mL) dic subcutaneou subcutaneou subcutaneo Sports s pen s pen us pen Medicin injector injector injector e INJECT 0.75 INJECT 0.75 INJECT MG UNDER MG UNDER 0.75 MG THE SKIN THE SKIN UNDER THE PER WEEK. PER WEEK. SKIN PER WEEK. prednisone prednisone No prednisone Tere 10 mg 10 mg 10 mg Orthope tablet TAKE tablet TAKE tablet dic 1 TABLET BY 1 TABLET BY TAKE 1 Sports MOUTH THREE MOUTH THREE TABLET BY Medicin TIMES A DAY TIMES A DAY MOUTH e THREE TIMES A DAY Vital Signs Vital Name Observation Time Observation Value Comments Source Height 2022-08-10 00:00:00 74 [in_i] Tere Christianson rthopedic Sports Medicine Systolic (mm Hg) 2019-02-03 19:31:00 Keegan Krueger Diastolic (mm Hg) 2019-02-03 19:31:00 [facility] emerson Krueger Respitory Rate 2019-02-03 19:31:00 Chano Copeland Heart Rate 2019-02-03 19:31:00 [facility] Temperature Oral (F) 2019-02-03 19:31:00 98.8 F [facility] Height 2019-02-03 19:31:00 190.5 cm [facility] BMI Calculated 2019-02-03 19:31:00 Chano Copeland Weight 2019-02-03 19:31:00 [facility] Procedures Procedure Date / Time Performing Clinician Source Performed Arthroscopy of Shoulder 2022-05-18 00:00:00 Marcin perdue Orthopedic Sports Medicine REFERRAL- 2020-09-02 05:01:00 Doctor Unassigned, No [facility] REQUEST/RESPONSE Name [facility] Arthroscopy of Knee [facility] Sports Medicine Arthroplasty of Tere Orthopedi c Shoulder Sports Medicine Encounters Start End Encounter Admission Attending Care Care Encounter Source Date/Time Date/Time Type Type Clinicians Facility Department ID 2023-01-18 2023-01-18 Outpatient FOG_Burke_R AOSM AOSM [id number] Tere 00:00:00 00:00:00 Danny [id number] Ortho pe dic Sports Medicin e 2023-01-03 2023-01-03 Outpatient FOG_Burke_R AOSM AOSM [id number] Tere 00:00:00 00:00:00 Danny [id number] Ortho pe dic Sports Medicin e 2022-09-04 2022-09-04 Outpatient FOG_Burke_R AOSM AOSM [id number] [id number]- Tere 00:00:00 00:00:00 Danny [id number] Ortho pe dic Sports Medicin e 2022-09-04 2022-09-04 Ady Hankins AOSM [place] - Ortho [id number] 00:00:00 00:00:00 MD Leo: Mariela Jama [address] FOG[facility]Of[facility] dic [facility] [address], [facility] [address] , Ph. [phone] 2022-08-30 2022-08-30 Outpatient FOG_Burke_R AOSM AOSM 627 [id number]- Tere 00:00:00 00:00:00 Danny [id number] Ortho pe dic Sports Medicin e 2022-08-10 2022-08-10 Outpatient FOG_Burke_R AOSM AOSM [id number] Tere 00:00:00 00:00:00 Danny [id number] Ortho pe dic Sports Medicin e 2022-08-10 2022-08-10 Ady Hankins AOS[facility] [place] - Ortho lea 00:00:00 00:00:00 MD Leo: Mareila Jama [address] FOG_Ofc dic [facility] [address], [place] [address] , Ph. [phone] 2022-08-05 2022-08-05 Outpatient FOG_Burke_R AOSM AOSM [id number] [id number] Tere 00:00:00 00:00:00 Danny [id number] Ortho pe dic Sports Medicin e 2022-08-01 2022-08-01 Outpatient FOG_Burke_R AOSM AOSM [id number] [id number] Tere 00:00:00 00:00:00 Danny [id number] Ortho pe dic Sports Medicin e 2022-06-25 2022-06-25 Outpatient FOG_Burke_R AOSM AOSM 627 3712- Tere 00:00:00 00:00:00 Danny [id number] Ortho pe dic Sports Medicin e 2022-06-25 2022-06-25 Ady Hankins AOSM [place] - Ortho Tere 00:00:00 00:00:00 MD Leo: Mariela Holland Orthopjc [address] FOG_Ofc dic [facility] [address], [place] [address] , Ph. [phone] 2022-06-25 2022-06-25 Outpatient Leo AOSM AOSM [id number] 00:00:00 00:00:00 Ady Hankins [id number] 2022-06-01 2022-06-01 Outpatient FOG_Burke_R AOSM AOSM 627 Tere 00:00:00 00:00:00 Danny [id number] Ortho pe dic Sports Medicin e 2022-06-01 2022-06-01 Ady JONES [place] - Ortho Tere 00:00:00 00:00:00 MD Leo: Mariela Holland Orthopjc [address] FOG_Ofc dic [facility] [place] [address] [facility] [address], [place] [address] , Ph. [phone] 2022-06-01 2022-06-01 Outpatient Bailey, AOSM AOSM [id number] 00:00:00 00:00:00 Ady Hankins [id number] 2022-05-22 2022-05-22 Outpatient FOG_Burke_R AOSM AOSM 627 3712- Tere 09:34:00 09:34:00 Danny [id number] Ortho pe dic Sports Medicin e 2022-05-22 2022-05-22 Outpatient FOG_Burke_R AOSM AOSM [id number] [id number] [place] 09:34:00 09:34:00 Danny [id number] Ortho pe dic Sports Medicin e 2022-05-18 2022-05-18 Outpatient TAYLOR Millan DAYS [id number] [facility] 07:00:00 07:00:00 Ady 23 [facility] 2022-05-18 2022-05-18 Outpatient TAYLOR Millan [id number] [facility] 07:00:00 07:00:00 Ady [id number] [facility] 2022-05-17 2022-05-17 Outpatient FOG_Burke_R AOSM AOSM 627 [id number] Tere 05:48:00 05:48:00 Danny [id number] Ortho pe dic Sports Medicin e 2022-05-12 2022-05-12 Outpatient FOG_Burke_R AOSM AOSM 627 [id number] Tere 02:19:00 02:19:00 Danny [id number] Ortho pe dic Sports Medicin e 2022-04-18 2022-04-18 Outpatient FOG_Burke_R AOSM AOSM 627 [id number] Tere 03:40:00 03:40:00 Danny [id number] Ortho pe dic Sports Medicin e 2022-04-07 2022-04-07 Outpatient FOG_Burke_R AOSM AOSM 627 [id number] Tere 01:55:00 01:55:00 Danny [id number] Ortho pe dic Sports Medicin e 2021-10-13 2021-10-13 Outpatient TAYLOR Millan [id number] [facility] 06:52:00 06:52:00 Ady 82 [facility] 2021-05-15 2021-05-15 Outpatient [facility] [id number] 533 [place] 00:00:00 00:00:[address] 2021-04-07 2021-04-07 Outpatient SAFIA [facility] [id number] [place] 00:00:00 00:00:00 YADIEL [address] 2021-01-24 2021-01-24 Patient Antonio WYMYRA [id number] [facility] 00:00:00 00:00:00 Outreach Ravi PRIMARY [id number] i ty [facility] [id number] Ethanonofre gage DEUCE [phone] Ms dical [address] [place] [address] 2020-12-22 2020-12-22 Outpatient [facility] [id number] [place] 00:00:00 00:00:00 SARA 586 [facility] 2020-11-02 2020-11-02 Outpatient [facility] [id number] [place] 00:00:00 00:00:00 SARA, 132 [facility] 2020-10-07 2020-10-07 Outpatient BAIG, [facility] [id number] [place] 00:00:00 00:00:00 YADIEL 218 [facility] i 2020-10-07 2020-10-07 Outpatient BAIG, [facility] [id number] [place] 00:00:00 00:00:00 YADIEL 049 Method i 2020-10-07 2020-10-07 Outpatient BAIG, [facility] [id number] [place] 00:00:00 00:00:00 YADIEL 052 Method i 2020-10-07 2020-10-07 Outpatient BAGI, [facility] [id number] [place] 00:00:00 00:00:00 YADIEL 050 Method i 2020-10-05 2020-10-05 Outpatient Roshan [facility] [id number] [facility] 11:20:00 11:20:00 WILL garcia o f [facility] 2020-09-02 2020-09-02 Orders Doctor SAVAGE [id number] [facility] 00:00:00 00:00:00 Only Unassigned, BARBARA [id number] ity of [facility] [id number] Ethan gibson [id number] [address] 2019-10-03 2019-10-03 Emergency X BRIDGETTE [facility] ERT [id number] [facility] 07:52:41 09:27:00 BOSSMAN garcia of [facility] 2019-02-03 2019-02-03 Emergency Critical access hospital [id number] [place] 19:26:00 22:36:00 roshan Krueger 00 l [facility] 2019-02-03 2019-02-03 Outpatient [facility] [id number] 14:26:00 17:36:00 Dre 00 Results Test Description Test Time Test Comments Results Result Comments Source GLUBED 2022-05-18 08:25:00 Test Item Value Reference Range Interpretation Comme nts GLUBED (test code = GLUBED) 218 mg/dL 60-125 H [id number] 08:13:00 Test Item Value Reference Range Interpretation Comments glubed (test code = glubed) 218 mg/dL 60-125 H performing lab: (test code = performing lab:) [facility] Sports [id number] 08:36:00 Test Item Value Reference Range Interpretation Comments GLUBED (test code = GLUBED) 194 mg/dL 60-125 H Notes Date/Time Note Provider Source 2022-05-18 10:38:00-00:00 [id number] [place] [address] PATIENT NAME: JANETTE ANN ADMIT DATE: ACCOUNT NO: [id number] ROOM NO: AGE: 66 REPORT TYPE: OPERATIVE REPORT SEX: M ADMITTING PHYSICIAN: ATTENDING PHYSICIAN:Ady Bailey MD OPERATION DATE: 05/18/2022 PREOPERATIVE DIAGNOSES: 1. Right shoulder rotator cuff tendon tear. 2. Stage III impingement. 3. Acromioclavicular arthropathy. POSTOPERATIVE DIAGNOSES: 1. A 1.5 cm tear of supraspinatus tendon, right shoulder, M75.121. 2. Right shoulder stage III impingement, M75.41. 3. Right shoulder acromioclavicular arthritis, M 19.011. OPERATIVE PROCEDURES PERFORMED: 1. Right shoulder diagnostic arthroscopy with an arthroscopic rotator cuff tendon repair, 40021. 2. Arthroscopic subacromial decompression, 94790 . 3. Arthroscopic distal clavicle resection, 62868 . ANESTHESIA: General. ESTIMATED BLOOD LOSS: None. SURGEON: Ady Bailey MD TALEND ETL DEVELOPER: NAN Remy OPERATIVE FINDINGS: As above. SURGICAL SPECIMEN SENT: None. CLINICAL INDICATIONS: Mr. Ann is a very ple asant 66-year-old male from [place], [place], who has been having progressive pain in his right shoulder for the past several months. Pain is occurring o n a daily basis. The pain affects both his work as well as daily activity. His pain has not abated despite nonoperative treatme nt. His clinical as well as radiographic evaluation revealed a symptomatic tear of the rotator cuff tendon along with stage III impingement of acromioclavicular arthropathy. He is admitted for arthroscopy, decompression, distal clavicle resection, and cu ff repair. PROCEDURE IN DETAIL: 1. RIGHT SHOULDER DIAGNOSTIC ARTHROSCOPY WITH AN ARTHROSCOPIC ROTATOR CUFF TENDON REPAIR, 22846. PATIENT NAME: JANETTE ANN [id number] 2. ARTHROSCOPIC SUBACROMIAL DECOMPRESSION, 82903 . 3. ARTHROSCOPIC DISTAL CLAVICLE RESECTION, 77533 . Mr. Ann was brought to the operative suite, at which time, he was placed in supine position on the OR table. Routine monitor s were established. General anesthesia was delivered. After satisfactory ind uction of general anesthesia, the patient was placed in th e Semi-Frias position per Ms. Paredes and the right shoulder was positioned per Ms. Paredes. The righ t shoulder was then circumferentially prepped and draped in usual st erile fashion per Ms. Paredes. Posterior arthroscopic portal was established. S ystematic glenohumeral arthroscopy was performed. I ntra-articular evaluation revealed an intact biceps tendon. Subscapularis tendon was intact. Anterio r and posterior labrum were unremarkable. Axillary recess unremarkable. Radha cular surface of the cuff revealed a full-thickness tear involving the supraspinatus tendon with limited retraction. The arthroscope was placed in subacr omial space, type-2 acromion was noted. A 1.5-cm tear of the supraspinatus te ndon was present with limited retraction. The rotator cuff insertion was debrided to bleeding cancellous bone and 1-mm tape was placed in the leading aspect o f the cuff. The cuff was then anatomically repaired utilizing a Cori [place] suture anchor. Anatomic and stable repair was achieved. The CA ligament was then released. Anterior infe rior acromioplasty was performed. The distal 10 mm of the clavicle was then resected. The subacromial space was thoroughly lavaged wit h lactated Ringer's solution. Arthroscopic portals were closed respectively wi th a 4-0 nylon suture per Ms. Paredes. A sterile dressing was applied by Luz amari. The patient was then extubated, taken to recovery room awake and aler t without any anesthetic or operative complications. At the end of t he case, sponge and needle counts were correct x2. During the procedure, Ms. Sa fitzpatrick was invaluable in positioning the patient along with preparati on and draping of the extremity. She was also vital for providing surgical exposure througho ut the procedure in addition to aiding in suture management during the arthrosc opic repair. Also, she was responsible for postoperative injection of anesthetic as wel l as closure of the postoperative incisions and application of posto perative dressing. Dictated By: Ady Bailey MD WT: OP:RACIEL/RONNI/BRIANA Conf#: [id number]/DID#: [id number] Authenticated by Ady Bailey MD On 01:04:41 PM Electronically Signed by Ady Bailey MD on 0 05/18/22 at 0104 PATIENT NAME: JANETTE ANN [id number] 2022-05-18 06:38:00-00:00 [facility] Brief Op Note REPORT#:[id number] REPORT STATUS: Signed DATE:05/18/22 TIME: 637 PATIENT: JANETTE ANN UNIT #: [id number] ROOM/BED: : 57 AGE: 66 SEX: M ATTEND: Sulaiman Bailey MD ADM AUTHOR: Aisha Paredes * ALL edits or amendments must be made on the el [employer]/computer document * Op/Inv Proc Note - Brief Pre-procedure diagnosis: Right shoulder rotator cuff tear, chronic imping ement and AC joint arthritis Post-procedure diagnosis: same as pre procedure dx Procedures performed: Right shoulder athroscopy, rotator cuff repair, subacromial decompression, distal clavicle resection Primary Surgeon: Leo Parimutuel Ticket Checker(s): Lena CAMARILLO Findings: as above Complications: none Estimated blood loss in ml's: none Specimens removed/altered: none Electronically Signed by Aisha Paredes on 0 05/22/22 at 0643 Electronically Signed by Ady Bailey MD on at 1252 [facility] #:[id number] END OF REPORT 2022-05-16 18:42:00-00:00 [id number] [place] [address] PATIENT NAME: JANETTE ANN ADMIT DATE: ACCOUNT NO: [id number] ROOM NO: AGE: 66 REPORT TYPE: HISTORY AND PHYSICAL SEX: M ADMITTING PHYSICIAN: ATTENDING PHYSICIAN:Ady Bailey MD ADMISSION DATE: 05/18/2022 ADMITTING DIAGNOSIS: Right shoulder rotator cuff tendon tear with stage III impingement and acromioclavicular arthritis. HISTORY OF PRESENT ILLNESS: The patient is a 66- year-old ojxbd-itlh-afjigztv male, who has been having progressive pain, decr eased motion and weakness involving the right shoulder for the pas t several months. The pain affects his daily activities. The pain has been refractory t o nonoperative treatment. His clinical as well as radiographic evaluat ion revealed a symptomatic tear of the rotator cuff tendon along wi th stage III impingement and AC arthropathy. Due to his progressive disability a nd lack of response to nonoperative treatment, he is admitted for diagnostic arthroscopy, dec ompression, distal clavicle resection, and cuff repair. PAST MEDICAL HISTORY: Diabetes, renal stones. PAST SURGICAL HISTORY: Inclu jayden a left shoulder arthroplasty, knee arthroscopy. FAMILY HISTORY: Carcinoma. SOCIAL HISTORY: He does not smoke nor does he dr ink. ALLERGIES: NO ALLERGIES ARE LISTED. MEDICATIONS: Consist of Accu-Chek, Tylenol with codeine, losartan, metformin, Ozempic, rosuvastatin. REVIEW OF SYSTEMS: Negative. PHYSICAL EXAMINATION: VITAL SIGNS: 6 feet 2 inches tall, weighs 100 ki lograms. HEENT: Within normal limits. CARDIAC: Regular rate and rhythm. No murmur. CHEST: Clear. ABDOMEN: Benign. BACK: No CVA tenderness. PERTINENT ORTHOPEDIC EVALUATION: Cervical spine is unremarkable. Examination of the right shoulder reveals no obvious atrophy or deformity. He has limited active elevation to 100 degrees. He has weakness with abduction as well as external rotation. His distal neurovascular stat us is intact. PATIENT NAME: JANETTE ANN [id number] DIAGNOSTIC DATA: Radiographic evaluation reveals a type 2 acromion with AC arthropathy. 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 ASSESSMENT: Symptomatic rotator cuff tendon tear , right shoulder, with associated stage III impingement and acromioclav icular arthritis. SURGICAL PLAN: Diagnostic arthroscopy, decompres maribeth, distal clavicle resection, cuff repair, and possible arthroscopic debridement. I have gone over at length with the patient the associated risks involved with this procedure. He understands these risks include but a re not limited to bleeding, infection, neurovascular damage, persistent pain, loss of m otion, failure of repair, recurrent tear, implant fail ure, need for implant removal, loss of motion, deep vein thrombi leading to pulmonary emboli along with complications secondary to anesthesia. The patient Antonio further un derstands that there are absolutely no guarantees or warranties deepti t he will be pain free as a result of the procedure. He accepts these risks and gives his informed c onsent to proceed. Dictated By: Ady Bailey MD WT: HP:RACIEL/RONNI/BRIANA Conf#: [id number]/DID#: [id number] Authenticated by Ady Bailey MD On 01:02:27 PM Electronically Signed by Ady Bailey MD on 0 05/17/22 at 0102 PATIENT NAME: JANETTE ANN [id number] 2021-10-13 10:58:00-00:00 [id number] [place] [id number] PATIENT NAME: JANETTE ANN ADMIT DATE: ACCOUNT NO: [id number] ROOM NO: AGE: 66 REPORT TYPE: OPERATIVE REPORT SEX: M ADMITTING PHYSICIAN: ATTENDING PHYSICIAN:Ady Bailey MD OPERATION DATE: 10/13/2021 PREOPERATIVE DIAGNOSIS: Left shoulder rotator cu ff tendon tear with stage III impingement and acromioclavicular arthritis. POSTOPERATIVE DIAGNOSES: 1. Interstitial tear of supraspinatus tendon, le ft shoulder, M75.122. 2. Stage III impingement, left shoulder, M75.42. 3. Acromioclavicular arthritis, left shoulder, M 19.012. OPERATIVE PROCEDURES PERFORMED: 1. Left shoulder diagnostic arthroscopy with an arthroscopic rotator cuff tendon repair, 63160. 2. Arthroscopic subacromial decompression, 42950 . 3. Arthroscopic distal clavicle resection, 26505 . SURGICAL FINDINGS: Interstitial bursal surface t ear of supraspinatus tendon with significant acromioclavicular arthritis and stage III impingement. SURGICAL SPECIMEN SENT: None. ANESTHESIA: General. ESTIMATED BLOOD LOSS: None. SURGEON: Ady Bailey M.D. TALEND ETL DEVELOPER: NAN Paredes. CLINICAL INDICATIONS: Mr. Ann is a 65-year- old male from [place], [place], who has been having progressive and sever e pain involving his left shoulder. Pain awakens him at night. Pain interf eres with daily activities. Due to his progressive disability and lack of re sponse to nonoperative treatment, he is admitted for diagnostic arthros copy, decompression, distal clavicle resection, and cuff repair. OPERATIVE NARRATIVE: 1. LEFT SHOULDER DIAGNOSTIC ARTHROSCOPY WITH AN ARTHROSCOPIC ROTATOR CUFF TENDON REPAIR, 85794. 2. ARTHROSCOPIC SUBACROMIAL DECOMPRESSION, 77509 . 3. ARTHROSCOPIC DISTAL CLAVICLE RESECTION, 11322 . PATIENT NAME: JANETTE ANN [id number] PROCEDURE IN DETAIL: Mr. Ann was br ought to the operative suite, at which time, he was placed in supine position on the OR table. Routine monitors were established. General anesthesia was deli job. After satisfactory induction of general anesthesia, the patient was plac ed in the Semi-Frias position per Ms. Paredes and the left shoulder was positioned per Ms. Paredes. The left shoulder was circumferentially prepped and draped in usua l sterile fashion per Ms. Paredes. Posterior arthroscopic portal was establ ished. Systematic intraarticular evaluation was performed. Glenohu meral evaluation revealed no labral pathology. Subscapularis tendon was intac t. Axillary recess was unremarkable. Bicipital tendon was intact. Artic ular surface of the cuff revealed interstitial tear involving the supraspinatus tendon. Arthroscope was placed in subacromial space, type 2 acromion was noted. Eburnation was noted compatible with chronic impingement. CA ligament was released. Anteroinferior acromioplasty was performed. The distal 10 mm of clavicle was then resected. The bursal tear was debrided to bleeding tissue and a kowg-in-bqlh repair was performed utilizing a 1 mm tape. Stable and sam omic repair was achieved. Thorough lavage was then performed to subacromia l space with lactated Ringer solution. Arthroscopic oziel ls were closed respectively with a 4-0 nylon suture per Ms. Paredes. Sterile dressing was applied by Ms. Paredes. The patient was then extubated, taken to rec overy room awake and alert without any anesthetic or operative complications. At the end of t he case, sponge and needle counts were correct x2. During the procedure, Ms. Sa fitzpatrick was invaluable in positioning the patient along with preparation and draping of extremity. She w as also responsible for providing surgical exposure throughout the proce dure in addition to providing aid in suture management during the arthroscopic repair. Finally, she was responsible for closure of the postoperative inc isions and application of postoperative dressing. Dictated By: Ady Bailey MD WT: OP:RACIEL/RONNI/BRIANA Conf#: [id number]/DID#: [id number] Authenticated by Ady Bailey MD On 11:20:46 AM Electronically Signed by Ady Bailey MD on 1 12/18/20 at 1120 PATIENT NAME: JANETTE ANN [id number] 2021-10-13 10:19:00-00:00 [facility] Brief Op Note REPORT#:[id number] REPORT STATUS: Signed DATE:10/13/21 TIME: 1019 PATIENT: JANETTE ANN UNIT #: [id number] ROOM/BED: : 57 AGE: 65 SEX: M ATTEND: Sulaiman Bailey MD ADM AUTHOR: Aisha Paredes * ALL edits or amendments must be made on the ZocDoc/computer document * Op/Inv Proc Note - Brief Pre-procedure diagnosis: Left Shoulder impingement and rotator cuff tear Post-procedure diagnosis: same as pre procedure dx Procedures performed: Left Shoulder arthroscopy with rotator cuff repa ir, subacromial decompression and distal clavicle rescection. Primary Surgeon: Leo Parimutuel Ticket Checker(s): Lena CAMARILLO Findings: as above Complications: none Estimated blood loss in ml's: none Specimens removed/altered: none Electronically Signed by Aisha Paredes on 1 12/14/20 at 1048 Electronically Signed by Ady Bailey MD on at 1257 RPT #:[id number] END OF REPORT 2021-10-11 15:41:00-00:00 [id number] [place] [id number] PATIENT NAME: JANETTE ANN ADMIT DATE: ACCOUNT NO: [id number] ROOM NO: AGE: 65 REPORT TYPE: HISTORY AND PHYSICAL SEX: M ADMITTING PHYSICIAN: ATTENDING PHYSICIAN:Ady Bailey MD ADMISSION DATE: 10/13/2021 ADMITTING DIAGNOSES: Left sh oulder stage III impingement with acromioclavicular arthropathy and full-thickness tear involving th e rotator cuff tendon. HISTORY OF PRESENT ILLNESS: Mr. Ann is a 65 -year-old bmvjf-umuv-dzbenusc male, who is self-employed, who is having progressive and severe pain involving his left shoulder. Pain awakens him at night. Th e pain has been refractory to extensive nonoperative treatment. His clinical a s well as radiographic evaluation revealed a full-t hickness tear of the rotator cuff tendon along with stage III impingement and AC arthritis. Due to h is severe disability and lack of response to nonoperative intervention, Mr. Wendi garnett is admitted for arthroscopic decompression, distal clavicle rese ction, and cuff repair. PAST MEDICAL HISTORY: Type 2 diabetes as well as renal stones. PAST SURGICAL HISTORY: Include a knee arthroscop y. FAMILY HISTORY: Carcinoma. SOCIAL HISTORY: He is . He is self-employ ed. He is also semi-retired. MEDICATIONS: Consist of metformin, losartan, and Ozempic. ALLERGIES: NO ALLERGIES ARE LISTED. REVIEW OF SYSTEMS: Negative. PHYSICAL EXAMINATION: VITAL SIGNS: He is 6 feet 2 inches tall, weighs 100 kilograms. HEENT: Within normal limits. CARDIAC: Regular rate and rhythm. No murmur. CHEST: Clear. ABDOMEN: Benign. BACK: No CVA tenderness. PERTINENT ORTHOPEDIC EVALUATION: Cervical spine is unremarkable. Examination of the left shoulder reveals active elevation to 150 degrees. Positive crossover test. Weakness with abduction as well as external rotation. No instability. Negative Speed's test. Negative Spu rling sign. Distal neurovascular status is intact. DIAGNOSTIC DATA: Radiographic evaluation reveals a type 2 acromion with PATIENT NAME: JANETTE ANN [id number] acromioclavicular arthritis and full-thi ckness tear involving the rotator cuff tendon. ASSESSMENT: Left shoulder pain secondary to stag e III impingement, acromioclavicular arthropathy, and full-thicknes s tear involving the rotator cuff tendon. SURGICAL PLAN: Arthroscopic decompressio n, distal clavicle resection, and cuff repair. I have gone over at length with Mr. Bartolo arevalo the associated risks involved with this procedure. He understands the se risks include but not limited to bleeding, infection, neurovascular da mage, failure of repair, recurrent tear, implant failure, need for implan t removal, loss of shoulder motion, need for further operative intervention along with complications secondary to anesthesia. Mr. Ann further un derstands that there are absolutely no guarantees or warranties that he will be pain free as a result of the procedure. He accepts these risks and gives his informed consent to proceed. Dictated By: Ady Bailey MD WT: HP:RACIEL/RONNI/BRIANA Conf#: [id number]/DID#: [id number] Authenticated by Ady Bailey MD On 10:40:24 AM at 1040 PATIENT NAME: JANETTE ANN [id number]
--- NOTE | 2023-04-13 12:05 | RAD REPORT ---
EXAM DESCRIPTION: CT - Head Brain Wo Cont - 04/13/2023 12:00 pm CLINICAL HISTORY: LEFT OCULAR TRAUMA COMPARISON: No comparisons TECHNIQUE: All CT scans are performed using dose optimization technique as appropriate and may inclu de automated exposure control or mA/KV adjustment according to patient size. FINDINGS: No intracranial hemorrhage, hydrocephalus or extra-axial fluid collection.No areas of brai n edema or evidence of midline shift. The paranasal sinuses and mastoids are clear. The calvarium is intact. IMPRESSION: No acute intracranial abnormality.
--- NOTE | 2023-04-13 12:20 | ER ---
Nurse's Notes [facility] Name: Miles Ann Age: 67 yrs Sex: Male : 1955 Arrival Date: 04/13/2023 Time: 11:12 Bed 12 Private MD: Diagnosis: Acute, left scleral abrasion Presentation: 04/13 11:32 Chief complaint: Patient states: STICK IMPACT LEFT LATERAL EYE WHILE MOWING. bp Coronavirus screen: At this time, the client does not indicate any symptoms associated with coronavirus-19. Ebola Screen: No symptoms or risks identified at this time. Mechanism of Injury: MOWING. The patient denies any loss of vision. Initial Sepsis Screen: Does the patient meet any 2 criteria? No. Patient's initial sepsis screen is negative. Does the patient have a suspected source of infection? No. Patient's initial sepsis screen is negative. Risk Assessment: Do you want to hurt yourself or someone else? Patient reports no desire to harm self or others. Onset of symptoms was April 13, 2023 at 10:45. 11:32 Method Of Arrival: Ambulatory bp 11:32 Acuity: CASTILLO 3 bp Triage Assessment: 11:33 General: Appears in no apparent distress. Behavior is calm, cooperative, appropriate bp for age. Pain: Complains of pain in left eye. EENT: Denies blurred vision. Neuro: No deficits noted. Cardiovascular: No deficits noted. Respiratory: No deficits noted. GI: No signs and/or symptoms were reported involving the gastrointestinal system. : No signs and/or symptoms were reported regarding the genitourinary system. Derm: No deficits noted. Musculoskeletal: No deficits noted. Historical: - Allergies: 11:33 No Known Allergies; bp - PMHx: 11:33 Diabetes - NIDDM; bp - Immunization history:: Adult Immunizations up to date, Last tetanus immunization: unknown. - Social history:: Smoking status: Patient denies any tobacco usage or history of. - Family history:: not pertinent. - Hospitalizations: : No recent hospitalization is reported. Screenin:35 [facility] ED Fall Risk Assessment (Adult) History of falling in the last 3 months, bp including since admission No falls in past 3 months (0 pts). Abuse screen: Denies threats or abuse. Denies injuries from another. Nutritional screening: No deficits noted. Tuberculosis screening: No symptoms or risk factors identified. Assessment: 11:35 General: SEE TRIAGE NOTE. bp Vital Signs: 11:32 BP 152 / 104; Pulse 76; Resp 18; Temp 98; Pulse Ox 100% ; Weight 97.52 kg; Height 6 ft. bp 2 in. ; 11:32 Body Mass Index 27.60 (97.52 kg, 187.96 cm) bp ED Course: 11:14 Patient arrived in ED. ts1 11:33 Triage completed. bp 11:33 Arm band placed on. bp 11:34 Evan Ballard MD is Attending Physician. rn 11:35 Patient has correct armband on for positive identification. bp 12:01 CT Head Brain wo Cont In Process Unspecified. EDMS 12:34 No provider procedures requiring assistance completed. Patient did not have IV access mb9 during this emergency room visit. Administered Medications: 12:34 Drug: Tetanus Toxoid,Adsorbed IM 0.5 ml {Adjunct Latin Professor: [employer]. Exp: 04/13/2024. mb9 Lot #: [id number]. } Route: IM; Site: left deltoid; 12:34 Follow up: Response: No adverse reaction mb9 Medication: 11:35 VIS not applicable for this client. bp Outcome: 12:20 Discharge ordered by . rn 12:34 Discharged to home ambulatory. mb9 12:34 Condition: stable 12:34 Discharge instructions given to patient, Instructed on discharge instructions, follow up and referral plans. Demonstrated understanding of instructions, follow-up care, medications, Prescriptions given X 1. 12:35 Patient left the ED. mb9 Signatures: Dispatcher [employer] EDMS Evan Ballard MD MD rn Peltier, Brian RN RN Sandra Florence RN RN mb9 Rossana Key PAS PAS ts1
--- NOTE | 2023-04-13 12:20 | EDPHYS ---
Physician Documentation [facility] Name: Miles Ann Age: 67 yrs Sex: Male : 1955 Arrival Date: 04/13/2023 Time: 11:12 Bed 12 Private MD: ED Physician Evan Ballard HPI: 04/13 12:14 This 67 yrs old Male presents to ER via Ambulatory with complaints of Eye Injury, Eye rn Pain. 12:14 The patient sustained a scratch, to the left eye, caused by debris. Onset: The rn symptoms/episode began/occurred just prior to arrival. Duration: the symptoms are continuous. Aggravated by rubbing. Associated signs and symptoms: Pertinent negatives: headache, vision changes. Severity of symptoms: At their worst the symptoms were mild in the emergency department the symptoms are unchanged. The patient has not experienced similar symptoms in the past. 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 Reports minimal discomfort. . Historical: - Allergies: 11:33 No Known Allergies; bp - PMHx: 11:33 Diabetes - NIDDM; bp - Immunization history:: Adult Immunizations up to date, Last tetanus immunization: unknown. - Social history:: Smoking status: Patient denies any tobacco usage or history of. - Family history:: not pertinent. - Hospitalizations: : No recent hospitalization is reported. ROS: 12:14 Constitutional: Negative for fever, chills, and weight loss, Eyes: + injury to left eye rn Exam: 12:14 Constitutional: This is a well developed, well nourished patient who is awake, alert, rn and in no acute distress. Head/Face: Normocephalic, atraumatic. Eyes: Pupils equal round and reactive to light, extra-ocular motions intact. Lids and lashes normal. Cornea within normal limits. Periorbital areas with no swelling, redness, or edema. + left lateral sclera with superficial and linear abrasion, no evidence of puncture. Pupil round and reactive. no corneal injury noted. Vital Signs: 11:32 BP 152 / 104; Pulse 76; Resp 18; Temp 98; Pulse Ox 100% ; Weight 97.52 kg; Height 6 ft. bp 2 in. ; 11:32 Body Mass Index 27.60 (97.52 kg, 187.96 cm) bp MDM: 11:34 Patient medically screened. rn 12:14 Differential diagnosis: scleral injury, ocular trauma, corneal injury, foreign body. rn Data reviewed: vital signs, nurses notes, radiologic studies, CT scan, and as a result, I will discharge patient. Counseling: I had a detailed discussion with the patient and/or guardian regarding: the historical points, exam findings, and any diagnostic results supporting the discharge/admit diagnosis, radiology results, the need for outpatient follow up, to return to the emergency department if symptoms worsen or persist or if there are any questions or concerns that arise at home. Special discussion: I discussed with the patient/guardian in detail that at this point there is no indication for admission to the hospital. It is understood, however, that if the symptoms persist or worsen the patient needs to return immediately for re-evaluation. Based on the history and exam findings, there is no indication for further emergent testing or inpatient evaluation. I discussed with the patient/guardian the need to see the opthamologist for further evaluation of the symptoms. ED course: CT head without acute findings, no foreign body or evidence of globe injury, on physical exam appears superficial and linear, will dc home with abx, updated tetanus. 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 Return precautions given. . 04/13 11:42 Order name: CT Head Brain wo Cont; Complete Time: 12:14 bp Administered Medications: 12:34 Drug: Tetanus Toxoid,Adsorbed IM 0.5 ml {Prism Measurer: [employer]. Exp: 04/13/2024. mb9 Lot #: [id number]. } Route: IM; Site: left deltoid; 12:34 Follow up: Response: No adverse reaction mb9 Disposition Summary: 04/13/23 12:20 Discharge Ordered Location: Home rn Problem: new rn Symptoms: have improved rn Condition: Stable rn Diagnosis - Acute, left scleral abrasion rn Followup: rn - With: Private Physician - When: 2 - 3 days - Reason: Recheck today's complaints, Re-evaluation by your physician Discharge Instructions: - Discharge Summary Sheet rn - Abrasion rn - Corneal Abrasion rn Forms: - Medication Reconciliation Form rn - Thank You Letter rn - Antibiotic hand pattern marker - Prescription Opioid Use rn Prescriptions: - Vigamox 0.5 % Ophthalmic Drops - instill 1 drop by OPHTHALMIC route every 8 hours for 7 days; 5 milliliter; rn Refills: 0, Product Selection Permitted Signatures: Dispatcher [employer] Evan Hernandes MD MD rn Peltier, Brian RN RN Sandra Florence RN RN mb9
[2023-04-13] MEDS ORDERED: TETANUS & DIPHTHERIA TOX,ADULT 0.5 ML VIAL ONE (12:39)
[2023-04-13 12:40] VITALS: BP 152/104; TEMP 98; O2SAT 100
== END 2023-04-13 12:35 | disposition home or self-care (01) ==
LOC: ER 11:12
DX: S05.02XA Injury of conjunctiva and corneal abrasion without foreign body, left eye, initial encounter (principal); Z23 Encounter for immunization
CPT/HCPCS: 70450; 90471; 90714; 99284